=== PATIENT | female | born 1975 | race Caucasian/White ===

== ENCOUNTER 2025-08-05 17:23 | Emergency (ER) | payer OTHER ==
[~2025-08-05] VITALS: Ht 167.6 cm; Wt 255.0 kg
[2025-08-05 17:29] VITALS: O2SAT 99
[2025-08-05 18:37] LABS: HEMATOCRIT. 37.8 % (36.0-48.0); HEMOGLOBIN. 11.9 g/dL (12.0-16.0); MEAN PLATELET VOLUME 7.8 fl (7.4-10.4); PLATELET 274 x1000/uL (130-400); RED BLOOD CELL COUNT 4.62 mill/uL (4.2-5.4); RED CELL DISTRIBUTION WIDTH 19.1 % (11.6-14.6)
[2025-08-05 18:47] LABS: INR 1.3
[2025-08-05 18:50] LABS: CREATININE 1.1 mg/dL (0.6-1.0)
[2025-08-05 18:51] LABS: TROPONIN I HIGH SENSITIVITY 16 ng/L (3.0-34); UREA NITROGEN BLOOD 15 mg/dL (9-23)
[2025-08-05 18:52] LABS: ASPARTATE AMINOTRANSFERASE 14 IU/L (<34); BILIRUBIN DIRECT 0.5 mg/dL (<=3.0)
[2025-08-05 18:53] LABS: BILIRUBIN TOTAL 0.9 mg/dL (0.1-1.0); PROTEIN TOTAL 7.7 g/dL (6.0-8.3)
[2025-08-05 19:11] LABS: EOSINOPHILS % MANUAL 1.0 % (0.0-5.0); LYMPHOCYTES % MANUAL 5.0 % (20.0-60.0); MONOCYTES % MANUAL 4.0 % (2.0-8.0); NEUTROPHILS % MANUAL 90.0 % (45.0-75.0); PLATELET ESTIMATE NORMAL
[2025-08-05 20:13] LABS: TROPONIN I HIGH SENSITIVITY 17 ng/L (3.0-34)
[2025-08-05] MEDS: KETOROLAC 15MG/ML VIAL IV ONE (20:55)
[2025-08-06 01:03] VITALS: BP 102/58; PULSE 90; RESP 25; TEMP 36.7; O2SAT 99
== END 2025-08-06 01:28 | disposition short-term general hospital (02) ==
LOC: ER 17:23 → CMPBEDREQ 08-06 07:58
DX: U07.1 COVID-19 (principal); R53.1 Weakness; R62.7 Adult failure to thrive; E66.01 Morbid (severe) obesity due to excess calories; R06.02 Shortness of breath; Z20.822 Contact with and (suspected) exposure to COVID-19; Z79.899 Other long term (current) drug therapy; Z98.890 Other specified postprocedural states
CPT/HCPCS: 80076; 80048; 83880; 83735; 85025; 85610; 84484; 36415; 71045; 96374; 99285; 87426; J1885; Z7610